=== PATIENT | male | born 1965 | race Caucasian/White ===

== ENCOUNTER 2023-05-13 08:11 | Outpatient (CLI) | payer OTHER | END 2023-05-13 08:12 | disposition home or self-care (01) | LOC: CSHMRI 08:11 | PROVIDERS: ATTEND Family Medicine | DX: M25.512 Pain in left shoulder (principal); S43.082A Other subluxation of left shoulder joint, initial encounter; M75.82 Other shoulder lesions, left shoulder; S43.432A Superior glenoid labrum lesion of left shoulder, initial encounter; M24.212 Disorder of ligament, left shoulder ==

== ENCOUNTER 2024-05-01 08:29 | Outpatient (CLI) | payer OTHER | END 2024-05-01 08:30 | disposition home or self-care (01) | LOC: CSHMRI 08:29 | PROVIDERS: ATTEND Family Medicine | DX: S46.192A Other injury of muscle, fascia and tendon of long head of biceps, left arm, initial encounter (principal); M65.812 Other synovitis and tenosynovitis, left shoulder; M67.912 Unspecified disorder of synovium and tendon, left shoulder ==